=== PATIENT | male | born 1955 | race Caucasian/White ===

== ENCOUNTER 2018-11-15 11:42 | Emergency (ER) | payer BC, OTHER ==
[~2018-11-15] VITALS: Ht 175.3 cm; Wt 94.8 kg
[2018-11-15] MEDS ORDERED: NITROGLYCERIN 0.4 MG SL TABS BTL 25'S SL ONE (11:47)
[2018-11-15] MEDS ORDERED: ASPIRIN 81 MG CHEW (CHILDREN'S ASA) ONE (11:47)
--- NOTE | 2018-11-15 11:53 | ED Chest Pain ---
General Stated Complaint: CHEST PAINS Source: patient Exam Limitations: no limitations History of Present Illness Date Seen by Provider: Nov 15, 2018 Time Seen by Provider: 11:48 Initial Comments To ER per private vehicle with reports of epigastric and lower central chest pain. This is been constant for one week but became much more intense this morning. He's had these chest pains for "a long time". He denies any shortness of breath, a slight chronic cough, he is a former smoker and quit 3 years ago. Former alcohol use and quit 3 years ago. The pain occasionally radiates to his back. He's had some exertional changes in the pain stating that any exertion and fatigue syndrome much more than it used to. He denies nausea or diaphoresis. He does not have a primary care provider, states that he saw the [facility] one year ago and was told that his right lung had some "cloudiness in it" but he never followed up on that. Timing/Duration: 1 week Severity/Quality: moderate Location: central, epigastric Radiation: back ASA po [employer] PROFESSOR: No NTG SL THEATRE [employer]S PROFESSOR: No Associated Symptoms: No nausea/vomiting Allergies and Home Medications Allergies Coded Allergies: No Known Drug Allergies (Unverified , 11/15/18) Patient Home Medication List Home Medication List Reviewed: Yes Review of Systems Review of Systems Constitutional: see HPI; No diaphoresis EENTM: No Symptoms Reported Respiratory: See HPI, Cough Cardiovascular: See HPI, Chest Pain Gastrointestinal: No Symptoms Reported; Denies Nausea Genitourinary: No Symptoms Reported Musculoskeletal: no symptoms reported Skin: no symptoms reported Psychiatric/Neurological: No Symptoms Reported Endocrine: No Symptoms Reported Hematologic/Lymphatic: No Symptoms Reported Physical Exam Vital Signs Vital Signs - First Documented 11/15/18 11:42 Temp 98.9 Pulse 83 Resp 22 B/P (MAP) 126/80 (95) Pulse Ox 98 O2 Delivery Room Air Capillary Refill : Height, Weight, BMI Height: '" Weight: lbs. oz. kg; BMI Method: General Appearance: No Apparent Distress, WD/WN HEENT: PERRL/EOMI, TMs Normal Neck: Full Range of Motion, Normal Inspection Respiratory: Chest Non Tender, Normal Breath Sounds, No Accessory Muscle Use, No Respiratory Distress Cardiovascular: Regular Rate, Rhythm, Normal Peripheral Pulses Gastrointestinal: Normal Bowel Sounds, Non Tender, Soft Extremity: Normal Capillary Refill, Normal Inspection Neurologic/Psychiatric: Alert, Oriented x3 Skin: Normal Color, Warm/Dry Progress/Results/Core Measures Results/Orders Lab Results Laboratory Tests Test 11/15/18 11:52 11/15/18 15:27 Range/Units White Blood Count 9.1 4.3-11.0 10^3/uL Red Blood Count 4.98 4.35-5.85 10^6/uL Hemoglobin 14.2 13.3-17.7 G/DL Hematocrit 43 40-54 % Mean Corpuscular Volume 86 80-99 FL Mean Corpuscular Hemoglobin 29 25-34 PG Mean Corpuscular Hemoglobin Concent 33 32-36 G/DL Red Cell Distribution Width 14.3 10.0-14.5 % Platelet Count 427 H 130-400 10^3/uL Mean Platelet Volume 8.8 7.4-10.4 FL Neutrophils (%) (Auto) 68 42-75 % Lymphocytes (%) (Auto) 16 12-44 % Monocytes (%) (Auto) 13 H 0-12 % Eosinophils (%) (Auto) 3 0-10 % Basophils (%) (Auto) 1 0-10 % Neutrophils # (Auto) 6.2 1.8-7.8 X 10^3 Lymphocytes # (Auto) 1.4 1.0-4.0 X 10^3 Monocytes # (Auto) 1.1 H 0.0-1.0 X 10^3 Eosinophils # (Auto) 0.3 0.0-0.3 10^3/uL Basophils # (Auto) 0.1 0.0-0.1 10^3/uL Prothrombin Time 13.8 12.2-14.7 SEC INR Comment 1.1 0.8-1.4 Activated Partial Thromboplast Time 33 24-35 SEC D-Dimer 0.68 H 0.00-0.49 UG/ML Sodium Level 133 L 135-145 MMOL/L Potassium Level 3.8 3.6-5.0 MMOL/L Chloride Level 98 98-107 MMOL/L Carbon Dioxide Level 28 21-32 MMOL/L Anion Gap 7 5-14 MMOL/L Blood Urea Nitrogen 9 7-18 MG/DL Creatinine 0.85 0.60-1.30 MG/DL Estimat Glomerular Filtration Rate > 60 BUN/Creatinine Ratio 11 Glucose Level 122 H 70-105 MG/DL Calcium Level 10.2 H 8.5-10.1 MG/DL Corrected Calcium 10.4 H 8.5-10.1 MG/DL Magnesium Level 2.3 1.8-2.4 MG/DL Total Bilirubin 0.8 0.1-1.0 MG/DL Aspartate Amino Transf (AST/SGOT) 16 5-34 U/L Alanine Aminotransferase (ALT/SGPT) 7 0-55 U/L Alkaline Phosphatase 139 H 40-136 U/L Myoglobin 18.4 10.0-92.0 NG/ML Troponin I < 0.028 < 0.028 <0.028 NG/ML B-Type Natriuretic Peptide 35.0 <100.0 PG/ML Total Protein 7.4 6.4-8.2 GM/DL Albumin 3.7 3.2-4.5 GM/DL Lipase 10 8-78 U/L My Orders Orders - MANJINDER FAJARDO APRN Cbc With Automated Diff (11/15/18 11:46) Magnesium (11/15/18 11:46) Ekg Tracing (11/15/18 11:46) Cardiac Profile 1 (11/15/18 11:46) Comprehensive Metabolic Panel (11/15/18 11:46) Myoglobin Serum (11/15/18 11:46) Protime With Inr (11/15/18 11:46) Partial Thromboplastin Time (11/15/18 11:46) O2 (11/15/18 11:46) Monitor-Rhythm Ecg Trace Only (11/15/18 11:46) Lipid Panel (11/16/18 06:00) Saline Lock/Iv-Start (11/15/18 11:46) Lipase (11/15/18 11:46) BNP (11/15/18 11:46) Fibrin Degradation Products (11/15/18 11:46) Aspirin Chewable Tablet (Baby Aspirin Ch (11/15/18 12:00) Nitroglycerin 0.4 Mg Btl 25's (Nitrostat (11/15/18 12:00) Chest 1 View, Ap/Pa Only (11/15/18 11:55) Ct Angio Chest W (11/15/18 12:26) Iohexol Injection (Omnipaque 350 Mg/Ml 1 (11/15/18 12:45) Received Contrast (Contrast Received) (11/15/18 12:45) Ns (Ivpb) (Sodium Chloride 0.9% Ivpb Bag (11/15/18 12:45) Antacid Suspension (Mylanta Suspension (11/15/18 13:00) Lidocaine 2% Viscous 15 Ml (Xylocaine Vi (11/15/18 13:00) Echo W Doppler/Color Flow (11/15/18 13:31) Nitroglycerin 0.4 Mg Btl 25's (Nitrostat (11/15/18 11:47) Aspirin Chewable Tablet (Baby Aspirin Ch (11/15/18 11:47) Troponin I (11/15/18 15:24) Medications Given in ED Current Medications Medications Dose Ordered Sig/Sunday Route Start Time Stop Time Status Last Admin Dose Admin Al Hydrox/Mg Hydrox/Simethicone 30 ml ONCE ONCE PO 11/15/18 13:00 11/15/18 13:01 DC 11/15/18 13:03 30 ML Aspirin 324 mg ONCE ONCE PO 11/15/18 12:00 11/15/18 12:01 DC 11/15/18 11:49 324 MG Iohexol 125 ml ONCE ONCE IV 11/15/18 12:45 11/15/18 12:46 DC 11/15/18 12:46 125 ML Lidocaine HCl 10 ml ONCE ONCE PO 11/15/18 13:00 11/15/18 13:01 DC 11/15/18 13:03 10 ML Nitroglycerin 1 TAB Q 5 MIN X 3 NEEDED PRN SL 11/15/18 12:00 11/15/18 11:50 0.4 MG Sodium Chloride 100 ml ONCE ONCE IV 11/15/18 12:45 11/15/18 12:46 DC 11/15/18 12:46 80 ML Vital Signs/I&O 11/15/18 11:42 Temp 98.9 Pulse 83 Resp 22 B/P (MAP) 126/80 (95) Pulse Ox 98 O2 Delivery Room Air Diagnostic Imaging Diagonstic Imaging: Xray, CT Plain Films/CT/US/NM/MRI: chest Comments NAME: TANA RIGGINS [facility] REC#: [id number] PT STATUS: REG ER : 1955 PHYSICIAN: MANJINDER FAJARDO [employer] ADMIT DATE: 11/15/18/ER Draft Date of Exam:11/15/18 CT ANGIO CHEST W PROCEDURE: CT angiography of the chest with contrast. TECHNIQUE: Multiple contiguous axial images were obtained through the chest after uneventful bolus administration of intravenous contrast. 2D reconstructed CTA MIP acquisitions were also performed. INDICATION: Chest pain. COMPARISON: Chest radiograph of earlier same day. FINDINGS: Vasculature: No pulmonary emboli. There is occlusion of the right upper lobe pulmonary artery secondary to the large mass. Thoracic aorta is normal in caliber. No aortic dissection or pseudoaneurysm. Heart and mediastinum: Visualized thyroid is normal. No supraclavicular or axillary lymphadenopathy. Multifocal intrathoracic lymphadenopathy compatible with metastatic disease. This involves dominant subcarinal lymph node measuring 2.7 x 4.7 cm along with the contralateral left mediastinal prevascular lymph node measuring 1.3 cm in diameter. Left hilar lymphadenopathy is also present measuring 1.4 cm. Pleura: Trace loculated pleural fluid in the right apex adjacent to the mass and the collection measuring approximately 4 x 2 cm. Lungs and airway: Large invasive right upper lobe lung mass measures approximately 9.0 x 7.3 x 7.7 cm. There is direct invasion of the mediastinum and probable apical pleura. Moderate high-grade luminal narrowing of the right mainstem bronchus due to circumferential encasement by the mass with the mass directly grown across midline along the central aspect of the left mainstem bronchus. The right upper lobe bronchi are completely obstructed by the mass. The mass invades across the major fissure into the superior segment of the right lower lobe. A small amount of postobstructive pneumonitis is present in the right lower lobe superior segment. No contralateral pulmonary nodules. Upper abdomen: There are a few subcentimeter nonspecific lymph nodes in the upper retroperitoneum along the celiac axis. No adrenal nodule or definitive hepatic mass, although assessment is limited due to phase of imaging. Musculoskeletal: No concerning osseous lesion. IMPRESSION: 1. Large right upper lobe lung mass directly invades the mediastinum, apical pleura and crosses through the right major fissure with direct invasion of the right lower lobe. This is indicative of primary lung cancer. 2. Contralateral mediastinal and hilar lymphadenopathy is present. 3. Complete obstruction of the right upper lobe bronchus and pulmonary arteries is secondary to the large invasive mass. 4. No acute pulmonary emboli within the right lower lobe or left lung. Findings were called to Manjinder Fajardo by Dr. Jewel Arias at 01:21 p.m. on 11/15/2018. Dictated on workstation # [id number] Dict: 11/15/18 1310 Trans: 11/15/18 1328 [facility] [id number] Interpreted by: JEWEL ARIAS MD Electronically signed by: Departure Communication (Admissions) 1248-I discussed the chest x-ray findings a right upper lobe mass with the patient. Showed him a picture of the x-ray and he states "oh that looks better than it did last year, I think it's getting better" 1329- I discussed the case with Dr. Blankenship who is present here in the emergency room. He has visited with the patient himself. We will repeat a troponin at 3R [facility] Robert an echocardiogram, if the echocardiogram does not show severe pathology and if the repeat troponin is negative he will be discharged home with outpatient follow-up with Dr. Blankenship and with pulmonology Dr. Pino. Impression Primary Impression: Chest pain Qualified Codes: R07.9 - Chest pain, unspecified Additional Impression: Mass of upper lobe of right lung Disposition: HOME, SELF-CARE Condition: Stable Departure-Patient Inst. Decision time for Depature: 14:32 Referrals: JERRY PINO M RIZWAN MD Patient Instructions: Chest Pain (DC), Lung Cancer Add. Discharge Instructions: you are scheduled to see Dr. Pino on of this week at [address] Blankenship for follow up appointment this week. MANJINDER FAJARDO APRN Nov 15, 2018 11:53
[2018-11-15 11:59] LABS: BASOPHILS # (AUTO) 0.1 10^3/uL (0.0-0.1); BASOPHILS % (AUTO) 1 % (0-10); EOSINOPHILS # (AUTO) 0.3 10^3/uL (0.0-0.3); EOSINOPHILS % (AUTO) 3 % (0-10); HEMATOCRIT 43 % (40-54); HEMOGLOBIN 14.2 G/DL (13.3-17.7); LYMPHOCYTES # (AUTO) 1.4 X 10^3 (1.0-4.0); LYMPHOCYTES % (AUTO) 16 % (12-44); MEAN CORPUSCULAR HEMOGLOBIN 29 PG (25-34); MEAN CORPUSCULAR HGB CONC 33 G/DL (32-36); MEAN CORPUSCULAR VOLUME 86 FL (80-99); MEAN PLATELET VOLUME 8.8 FL (7.4-10.4); MONOCYTES # (AUTO) 1.1 X 10^3 (0.0-1.0); MONOCYTES % (AUTO) 13 % (0-12); NEUTROPHILS # (AUTO) 6.2 X 10^3 (1.8-7.8); NEUTROPHILS % (AUTO) 68 % (42-75); PLATELET COUNT 427 10^3/uL (130-400); RED CELL DISTRIBUTION WIDTH 14.3 % (10.0-14.5); WHITE BLOOD COUNT 9.1 10^3/uL (4.3-11.0)
[2018-11-15] MEDS ORDERED: NITROGLYCERIN 0.4 MG SL TABS BTL 25'S SL PRN (12:00)
[2018-11-15] MEDS ORDERED: ASPIRIN 81 MG CHEW (CHILDREN'S ASA) PO ONE (12:00)
[2018-11-15 12:14] LABS: INR 1.1 (0.8-1.4); PROTHROMBIN TIME PATIENT 13.8 SEC (12.2-14.7)
[2018-11-15 12:25] LABS: ALANINE AMINOTRANSFERASE 7 U/L (0-55); ALBUMIN 3.7 GM/DL (3.2-4.5); ALKALINE PHOSPHATASE 139 U/L (40-136); BILIRUBIN,TOTAL 0.8 MG/DL (0.1-1.0); BUN/CREATININE RATIO 11; CALCIUM 10.2 MG/DL (8.5-10.1); CARBON DIOXIDE 28 MMOL/L (21-32); CHLORIDE 98 MMOL/L (98-107); CREATININE SERUM 0.85 MG/DL (0.60-1.30); GFR ESTIMATED > 60; GLUCOSE 122 MG/DL (70-105); LIPASE 10 U/L (8-78); MAGNESIUM 2.3 MG/DL (1.8-2.4); POTASSIUM 3.8 MMOL/L (3.6-5.0); SODIUM 133 MMOL/L (135-145); TOTAL PROTEIN 7.4 GM/DL (6.4-8.2)
[2018-11-15 12:31] LABS: MYOGLOBIN SERUM 18.4 NG/ML (10.0-92.0)
--- NOTE | 2018-11-15 12:40 | Diagnostic Imaging Report ---
CLINICAL INDICATION: Patient has been having chest pain for a while and have gotten worse lately. EXAM: Portable chest x-ray upright view. COMPARISON: None. FINDINGS: There is a roughly 7.0 cm, in craniocaudal dimension, area of consolidation involving the right lung apex which may have convex borders and slightly rounded appearance. There is also pleural thickening or fluid in the right lung apex seen. There is also increased airspace opacity in the right upper lobe. Remainder of the lungs are clear. There is no pneumothorax. Pulmonary vasculature and cardiac silhouettes within normal limits. Bones show no significant abnormality. IMPRESSION: There is an area of consolidation in the right lung apex which measures grossly 7.0 cm in craniocaudal dimension. There is also pleural thickening/fluid in the right lung apex region. There are small amount of airspace opacification involving right upper lobe. This area of consolidation is most concerning for a mass/neoplasm. Also area of conglomerative consolidation with scarring from infection or inflammatory process such as fungus or TB should be excluded. CT scan of the chest with contrast is suggested for further evaluation. Dictated by: Dictated on workstation # [id number]
[2018-11-15] MEDS ORDERED: NS 100 ML (IVPB) BAG IV ONE (12:45)
[2018-11-15] MEDS ORDERED: IOHEXOL 350 MG/ML 150 ML (OMNIPAQUE 350) VIAL IV ONE (12:45)
[2018-11-15] MEDS ORDERED: RECEIVED CONTRAST 20 ML VIAL IV SCH (12:45)
[2018-11-15] MEDS ORDERED: LIDOCAINE 2% VISCOUS 15 ML UDC PO ONE (13:00)
[2018-11-15] MEDS ORDERED: ANTACID SUSP 30 ML UDC (MYLANTA) PO ONE (13:00)
--- NOTE | 2018-11-15 13:28 | Diagnostic Imaging Report ---
PROCEDURE: CT angiography of the chest with contrast. TECHNIQUE: Multiple contiguous axial images were obtained through the chest after uneventful bolus administration of intravenous contrast. 2D reconstructed CTA MIP acquisitions were also performed. INDICATION: Chest pain. COMPARISON: Chest radiograph of earlier same day. FINDINGS: Vasculature: No pulmonary emboli. There is occlusion of the right upper lobe pulmonary artery secondary to the large mass. Thoracic aorta is normal in caliber. No aortic dissection or pseudoaneurysm. Heart and mediastinum: Visualized thyroid is normal. No supraclavicular or axillary lymphadenopathy. Multifocal intrathoracic lymphadenopathy compatible with metastatic disease. This involves dominant subcarinal lymph node measuring 2.7 x 4.7 cm along with the contralateral left mediastinal prevascular lymph node measuring 1.3 cm in diameter. Left hilar lymphadenopathy is also present measuring 1.4 cm. Pleura: Trace loculated pleural fluid in the right apex adjacent to the mass and the collection measuring approximately 4 x 2 cm. Lungs and airway: Large invasive right upper lobe lung mass measures approximately 9.0 x 7.3 x 7.7 cm. There is direct invasion of the mediastinum and probable apical pleura. Moderate high-grade luminal narrowing of the right mainstem bronchus due to circumferential encasement by the mass with the mass directly grown across midline along the central aspect of the left mainstem bronchus. The right upper lobe bronchi are completely obstructed by the mass. The mass invades across the major fissure into the superior segment of the right lower lobe. A small amount of postobstructive pneumonitis is present in the right lower lobe superior segment. No contralateral pulmonary nodules. Upper abdomen: There are a few subcentimeter nonspecific lymph nodes in the upper retroperitoneum along the celiac axis. No adrenal nodule or definitive hepatic mass, although assessment is limited due to phase of imaging. Musculoskeletal: No concerning osseous lesion. IMPRESSION: 1. Large right upper lobe lung mass directly invades the mediastinum, apical pleura and crosses through the right major fissure with direct invasion of the right lower lobe. This is indicative of primary lung cancer. 2. Contralateral mediastinal and hilar lymphadenopathy is present. 3. Complete obstruction of the right upper lobe bronchus and pulmonary arteries is secondary to the large invasive mass. 4. No acute pulmonary emboli within the right lower lobe or left lung. Findings were called to Panchito Fajardo by Dr. Jewel Arias at 01:21 p.m. on 11/15/2018. Dictated by: Dictated on workstation # [id number]
--- NOTE | 2018-11-15 13:58 | Consultation-Cardiology ---
HPI-Cardiology Cardiology Consultation: Date of Consultation 11/15/18 Date of Admission Attending Physician Admitting Physician Consulting Physician Leobardo BLANKENSHIP MD HPI: Time Seen by a Provider: 13:15 Chief Complaint: Chest pain This is a 63-year-old male patient who came to the ER with complains of epigastric and lower chest pain. He is been having this pain on and off for one week. He is a former smoker but quit 3 years ago. He denies any shortness of breath. He also denies any significant coronary risk factors. He denies any family history of premature CAD. He does not follow regularly with physicians. Review of Systems-Cardiology Review of Systems Constitutional: As described under HPI; No As described under HPI, No no symptoms reported, No chills, No fever, No lightheadedness Eyes: No As described under HPI, No no symptoms reported, No blindness, No blurred vision, No contact lenses, No drainage, No decreased acuity, No foreign body sensation, No pain, No vision change Ears/Nose/Throat: No As described under HPI, No no symptoms reported, No chronic hearing loss, No ear discharge, No ear pain, No nasal drainage, No ulcerations Respiratory: No no symptoms reported; As described under HPI; No As described under HPI, No cough, No orthopnea, No shortness of breath, No SOB with excertion Cardiovascular: No no symptoms reported; As described under HPI; No As described under HPI; chest pain; No edema, No irregular heart rate, No lightheadedness, No palpitations Gastrointestinal: No no symptoms reported, No As described under HPI, No abdomen distended, No abdominal pain, No blood streaked bowels, No constipation , No diarrhea, No nausea, No vomiting, No stool coloration changes Genitourinary: No As described under HPI, No burning, No dysuria, No discharge , No frequency, No flank pain, No hematuria, No urgency Musculoskeletal: No no symptoms reported, No As describe under HPI, No back pain, No gout, No joint pain, No joint swelling, No muscle pain, No muscle stiffness, No neck pain, No other Skin: No no symptoms reported, No As described under HPI, No change in color, No change in hair/nails, No dryness, No lesions, No lumps, No rash, No other, No skin related problems, No ulcerations, No rash on exposed areas, No ulcerations on exposed areas Psychiatric/Neurological: No anxiety, No depression, No seizure, No focal weakness, No syncope Hematologic: No bleeding abnormalities ANM-Bellxd-Kafewr Hx Patient Social History Alcohol Use: Past History Recreational Drug Use: No (FORMER) Smoking Status: Former Smoker Recent Foreign Travel: No Recent Infectious Disease Expo: No Hospitalization with Isolation: Denies Immunizations Up To Date Tetanus Booster (TDap): Unknown Past Medical History PMH As described under Assessment. Allergies and Home Medications Allergies Coded Allergies: No Known Drug Allergies (Unverified , 11/15/18) Patient Home Medication List Home Medication List Reviewed: Yes Physical Exam-Cardiology Physical Exam Vital Signs/I&O 11/15/18 11/15/18 11:42 16:15 Temp 98.9 Pulse 83 83 Resp 22 20 B/P (MAP) 126/80 (95) 118/78 (91) Pulse Ox 98 97 O2 Delivery Room Air Room Air Capillary Refill : Less Than 3 Seconds Constitutional: appears stated age, AAO x 3; No apparent distress; well- developed, well-nourished HEENT: PERRL; No normal ENT inspection, No TMs normal, No pharynx normal, No scleral icterus (R), No scleral icterus (L), No pale conjunctivae (R), No pale conjunctivae (L), No photophobia, No TM abnormal (R), No TM abnormal (L), No pharyngeal erythema, No tonsillar exudate, No other, No discharge, No EOMI; hearing is well preserved; No hard of hearing; oral hygience is good; No ulceration, No xanthelasmas are seen Neck: No non-tender, No full range of motion, No supple, No normal inspection, No carotid bruit, No limited range of motion, No lymphadenopathy (R), No lymphadenopathy (L), No tender lateral, No tender midline, No thyromegaly, No other; carotid pulses are 2 + bilaterally; No with good upstrokes Respiratory: No accessory muscle use, No respiratory distress, No chest tender , No chest expansion is symmetric; chest is bilaterally symmetric; No lungs clear to percussion; lungs clear to auscultation; No crackles, No rhonchi, No rales, No stridor, No wheezing, No pleural rub, No other Cardiovascular: regular rate-rhythm; No irregularly irregular, No extra beats, No parasternal heave is noted, No JVD, No edema, No bradycardia, No tachycardia , No point of maximal impulse, No cardiac thrills are palpable; S1 and S2; No gallop/S3, No gallop/S4, No diastolic murmur, No systolic murmur, No friction rub, No click, No other Gastrointestinal: No tender, No soft, No round, No distended, No pulsatile mass , No organomegaly, No guarding, No rebound, No tenderness, No hernia, No mass, No audible bowel sounds, No abnormal bowel sounds, No abdominal bruits, No spleenomegaly, No other Rectal: deferred Extremities: No normal range of motion, No non-tender, No normal inspection, No pedal edema, No calf tenderness, No normal capillary refill, No pelvis stable , No calf tenderness, No inflammation, No pedal edema, No slow capillary refill , No swelling, No other, No abrasion, No clubbing, No cyanosis, No ecchymosis, No laceration, No no lower extremity edema bilateral, No significant edema, No tenderness, No wound Neurologic/Psychiatric: no motor/sensory deficits, alert, normal mood/affect, oriented x 3, power is 5/5 both on sides Skin: No normal color, No warm/dry, No cyanosis, No cool, No diaphoresis, No damp, No ecchymosis, No jaundice, No mottled, No pallor, No rash, No tattoos/ piercings, No ulcerations, No rash on exposed areas, No ulcerations on exposed areas, No other Data Review Labs Laboratory Tests 11/15/18 11:52: White Blood Count 9.1, Red Blood Count 4.98, Hemoglobin 14.2, Hematocrit 43, Mean Corpuscular Volume 86, Mean Corpuscular Hemoglobin 29, Mean Corpuscular Hemoglobin Concent 33, Red Cell Distribution Width 14.3, Platelet Count 427H, Mean Platelet Volume 8.8, Neutrophils (%) (Auto) 68, Lymphocytes (%) (Auto) 16, Monocytes (%) (Auto) 13H, Eosinophils (%) (Auto) 3, Basophils (%) (Auto) 1, Neutrophils # (Auto) 6.2, Lymphocytes # (Auto) 1.4, Monocytes # (Auto) 1.1H, Eosinophils # (Auto) 0.3, Basophils # (Auto) 0.1, Prothrombin Time 13.8, INR Comment 1.1, Activated Partial Thromboplast Time 33, D-Dimer 0.68H, Sodium Level 133L, Potassium Level 3.8, Chloride Level 98, Carbon Dioxide Level 28, Anion Gap 7, Blood Urea Nitrogen 9, Creatinine 0.85, Estimat Glomerular Filtration Rate > 60, BUN/Creatinine Ratio 11, Glucose Level 122H, Calcium Level 10.2H, Corrected Calcium 10.4H, Magnesium Level 2.3, Total Bilirubin 0.8, Aspartate Amino Transf (AST/SGOT) 16, Alanine Aminotransferase (ALT/SGPT) 7, Alkaline Phosphatase 139H, Myoglobin 18.4, Troponin I < 0.028, B-Type Natriuretic Peptide 35.0, Total Protein 7.4, Albumin 3.7, Lipase 10 11/15/18 15:27: Troponin I < 0.028 ECG Impression ECG Initial ECG Rhythm: Normal Sinus Initial ECG Impression: Nonspecific Changes A/P-Cardiology Assessment/Admission Diagnosis Chest pain, Lung mass Plan Acute coronary syndrome was ruled out with negative serial troponin and negative EKG. Echocardiogram was done while the patient was in the ER which demonstrated normal LV function with no wall motion abnormalities. There was no valvular heart disease. I discussed at length with the patient and he promised he will follow-up with me as an outpatient for nuclear stress test. I did tell him that if he has prolonged episode of chest pain he should seek immediate medical attention. Lung mass: Defer to Dr. Pino. Thank you for your consultation. Please call me if you have any questions. Ran Blankenship MD, FACP, FACC, FSCAI, FHRS, CCDS Interventional Cardiology Cardiac Electrophysiology Vascular Medicine and Endovascular Interventions Clinical Quality Measures AMI/AHF: ASA po Prior to arrival: Leobardo Khan MD Nov 15, 2018 13:58
[2018-11-15 16:15] VITALS: BP 118/78
== END 2018-11-15 16:15 | disposition home or self-care (01) ==
LOC: EDUNIT# 11:42 → ER 11:50
DX: R07.9 Chest pain, unspecified (principal); R91.8 Other nonspecific abnormal finding of lung field
CPT/HCPCS: 36415; 71045; 71275; 80053; 83690; 83735; 83874; 83880; 84484; 85025; 85379; 85610; 85730; 93005; 93041; 93306

== ENCOUNTER → 2018-11-16 | Outpatient (CLI) | payer BC ==
[2018-11-16 15:30] LABS: ABG BASE EXCESS 3.4 MMOL/L (-2.5-2.5); ABG OXYGEN SATURATION 98 % (94-100); ABG PCO2 39 MMHG (35-45); ABG PH 7.46 (7.37-7.43); ABG PO2 86 MMHG (79-93); ABG TCO2 28.4 MMOL/L (21.0-31.0)
[2018-11-16 15:31] LABS: ALLENS TEST YES-POS; INSPIRED O2 ROOM AIR; PATIENT TEMP 97.6; VENTILATOR NO
== END ==
LOC: RT 14:56
PROVIDERS: ATTEND Nurse Practitioner Family
DX: R06.00 Dyspnea, unspecified (principal); J30.9 Allergic rhinitis, unspecified; R06.89 Other abnormalities of breathing; R05 Cough; R91.8 Other nonspecific abnormal finding of lung field; J98.4 Other disorders of lung
CPT/HCPCS: 36600; 82805

== ENCOUNTER 2018-11-20 06:08 | Outpatient (CLI) | payer BC ==
[~2018-11-20] VITALS: Ht 175.3 cm; Wt 94.8 kg
== END 2018-11-20 12:46 | disposition home or self-care (01) ==
LOC: PREOP 06:08
PROVIDERS: ATTEND Internal Medicine Critical Care Medicine
DX: Z01.818 Encounter for other preprocedural examination (principal)

== ENCOUNTER 2018-11-22 08:01 | Day surgery (SDC) | payer BC ==
[~2018-11-22] VITALS: Ht 175.3 cm; Wt 94.8 kg
[2018-11-22] MEDS ORDERED: EPINEPHrine INJECTION 1 MG/ML AMP IJ ONE (08:02)
[2018-11-22] MEDS ORDERED: LACTATED RINGERS 1,000 ML IV ONE (08:02)
[2018-11-22] MEDS ORDERED: SOD CHL BACTER. 10 ML (IV START) VIAL IJ ONE (08:02)
[2018-11-22] MEDS ORDERED: LIDOCAINE PF 2% 5 ML (XYLOCAINE) VIAL INJ ONE (08:02)
[2018-11-22] MEDS ORDERED: LIDOCAINE PF 1% 2 ML VIAL (OR ONLY) IJ ONE (08:02)
[2018-11-22] MEDS ORDERED: LACTATED RINGERS 1,000 ML IV STA (08:11)
[2018-11-22] MEDS ORDERED: FLUMAZENIL (ROMAZICON) 0.1 MG/ML 5 ML VIAL INJ PRN (08:15)
[2018-11-22] MEDS ORDERED: NALOXONE 0.4 MG/ML 1 ML (NARCAN) VIAL IVP PRN (08:15)
[2018-11-22 08:24] VITALS: BP 111/76
[2018-11-22] MEDS ORDERED: RT-ALBUTEROL SULF 2.5 MG/3 ML PRE-MIX VIAL ONE (08:42)
[2018-11-22] MEDS ORDERED: proPOfol 200 MG/20 ML (DIPRIVAN) VIAL IV ONE (08:43)
[2018-11-22] MEDS ORDERED: ROCURONIUM 10 MG/ML 5 ML SYRINGE IV ONE (08:44)
[2018-11-22] MEDS ORDERED: fentaNYL INJECTION 100 MCG/2 ML AMP ONE (08:44)
[2018-11-22] MEDS ORDERED: LIDOCAINE PF 2% 5 ML (XYLOCAINE) VIAL ONE (08:44)
[2018-11-22] MEDS ORDERED: MIDAZOLAM 2 MG/2 ML (VERSED) VIAL ONE (08:44)
[2018-11-22] MEDS ORDERED: ONDANSETRON 4 MG/2 ML (SDV) Z0FRAN ONE (08:45)
[2018-11-22] MEDS ORDERED: DEXAMETHASONE 10 MG/ML (DECADRON) 1 ML VIAL ONE (08:45)
[2018-11-22] MEDS ORDERED: NEOSTIGMINE 1 MG/ML 5 ML SYRINGE ONE (09:56)
[2018-11-22] MEDS ORDERED: GLYCOPYRROLATE 0.2 MG/ML (ROBINUL) 2 ML VIAL ONE (09:56)
[2018-11-22] MEDS ORDERED: SEVOFLURANE (ULTANE) 15 ML INHAL SOLN ONE (09:59)
--- NOTE | 2018-11-22 10:10 | Pulmonary Procedures ---
Pulmonary Procedures Date of Procedure Date of Service: Nov 22, 2018 Bronch Bronchoscopy with right lung washes, brushes, and forcep bx. Percepta brush of xavier. EBUS with bx of station 7 lymph nodes Preop DX: mediastinal lymphadenopathy lung mass PostOP DX: large lung mass with MLA. RUL was occluded by external compression. Within the R bronchus there was a white plaque that was bx. Complications: None Pt was sedated per anesthesia. Bronchoscopy was advanced through the ET tube and an anatomical undertaken down to the segmental bronchi bilaterally. RUL was occluded by external compression. Bronchoscopy with right lung washes, brushes , and forcep bx. Percepta brush of xavier. EBUS was then advanced through ET tube and the mediastinum was US. Station 7 lymph nodes were sampled via needle bx under US guidance. large lung mass with MLA. Within the R bronchus there was a white plaque that was bx. Pt tolerated procedure well. No complications noted. JERRY TRINIDAD DO Nov 22, 2018 10:10
[2018-11-22] MEDS ORDERED: ONDANSETRON 4 MG/2 ML (SDV) Z0FRAN IVP PRN (10:15)
[2018-11-22] MEDS ORDERED: morphine INJ 10 MG/ML 1ML (SYR OR VIAL) IVP ONE (10:15)
--- NOTE | 2018-11-22 10:46 | Diagnostic Imaging Report ---
INDICATION: Status post bronchoscopy. TIME OF EXAM: 10:23 AM Correlation is made with prior chest from 11/15/2018. FINDINGS: Abnormal opacity in the upper right chest persists. There is no pneumothorax, status post bronchoscopy. Left lung is clear. IMPRESSION: No evidence of pneumothorax, status post bronchoscopy. Dictated by: Dictated on workstation # [id number]
[2018-11-22 11:05] VITALS: BP 101/67
[2018-11-22 11:35] VITALS: BP 97/71
[2018-11-22 11:45] VITALS: BP 97/71
--- NOTE | 2018-11-22 13:16 | Anesthesia-General Post-Op ---
General Patient Condition Mental Status/LOC: Same as Preop Cardiovascular: Satisfactory Nausea/Vomiting: Absent Respiratory: Satisfactory Pain: Controlled Complications: Absent Post Op Complications Complications None Follow Up Care/Instructions Patient Instructions None needed. Anesthesia/Patient Condition Patient Condition Patient is doing well, no complaints, stable vital signs, no apparent adverse anesthesia problems. No complications reported per nursing. MUNA LAFLEUR CRNA Nov 22, 2018 13:16
== END 2018-11-22 11:45 | disposition home or self-care (01) ==
LOC: ENDO 08:01
PROVIDERS: ATTEND Internal Medicine Critical Care Medicine
DX: C34.91 Malignant neoplasm of unspecified part of right bronchus or lung (principal); R59.0 Localized enlarged lymph nodes; J30.9 Allergic rhinitis, unspecified; R06.00 Dyspnea, unspecified; J98.4 Other disorders of lung; J44.9 Chronic obstructive pulmonary disease, unspecified; Z87.891 Personal history of nicotine dependence
CPT/HCPCS: 71045; 87015; 87070; 87101; 87116; 87205; 87206; 94640

== ENCOUNTER → 2018-12-20 | Outpatient (CLI) | payer BC ==
[~2018-12-20] MED LIST: RT-ALBUTEROL SULF 2.5 MG/3 ML PRE-MIX VIAL INH ONE; RT-ALBUTEROL SULF 2.5 MG/3 ML PRE-MIX VIAL ONE
== END ==
LOC: RT 15:12
PROVIDERS: ATTEND Nurse Practitioner Family
DX: R06.00 Dyspnea, unspecified (principal); R06.89 Other abnormalities of breathing; R05 Cough; R91.8 Other nonspecific abnormal finding of lung field; J30.9 Allergic rhinitis, unspecified; J98.4 Other disorders of lung
CPT/HCPCS: 94060; 94726; 94729